=== PATIENT | male | born 1950 | race Caucasian/White ===

== ENCOUNTER → 2021-09-20 | Outpatient (CLI) | payer OTHER | LOC: M PLAIMG 12:41 | PROVIDERS: ATTEND Physical Medicine & Rehabilitation Pain Medicine | DX: M51.16 Intervertebral disc disorders with radiculopathy, lumbar region (principal); M47.816 Spondylosis without myelopathy or radiculopathy, lumbar region; M99.53 Intervertebral disc stenosis of neural canal of lumbar region ==